=== PATIENT | female | born 1965 | race Two or more races ===

== ENCOUNTER 2018-11-09 16:13 | Inpatient (IN) | payer MEDICAID ==
[~2018-11-09] VITALS: Ht 162.6 cm; Wt 59.0 kg
[~2018-11-09 16:13] MED LIST: ETOMIDATE 2MG/ML 10ML VIAL IV ONE; SUCCINYLCHOLINE CHLORIDE 200MG/10ML IV ONE
[2018-11-09] MEDS ORDERED: SODIUM CHLORIDE 0.9% 1,000 ML IV ONE (16:21)
[2018-11-09] MEDS ORDERED: PROPOFOL 10MG/ML 100ML 100 ML IV PRN ×2 (16:30→23:45)
[2018-11-09 16:54] LABS: CHLORIDE 105 mEq/L (98-107)
[2018-11-09 16:56] LABS: BASOPHILS % 0.4 % (0.0-2.0); HEMATOCRIT. 40.4 % (36.0-48.0); HEMOGLOBIN. 13.2 g/dL (12.0-16.0); LYMPHOCYTES % 43.5 % (20.0-50.0); MEAN CORPUSCULAR HEMOGLOBIN 31.3 pg (28.0-32.0); MEAN PLATELET VOLUME 8.5 fl (7.4-10.4); MONOCYTES % 8.2 % (2.0-8.0); NEUTROPHILS % 45.9 % (40.0-76.0); PLATELET 265 x1000/uL (130-400); RED BLOOD CELL COUNT 4.21 mill/uL (4.2-5.4); RED CELL DISTRIBUTION WIDTH 13.4 % (11.6-14.6)
[2018-11-09 16:57] LABS: ETHANOL BLOOD 22 mg/dL
[2018-11-09 17:14] LABS: HCG SCREEN NEGATIVE
[2018-11-09] MEDS ORDERED: IOHEXOL-350 100 ML BOTTLE ONE (17:22)
[2018-11-09 17:40] LABS: BG BASE EXCESS -6.5 mmol/L (-2.0-2.0); BG CARBOXYHEMOGLOBIN 1.2 % (0.5-1.5); BG DEOXYHEMOGLOBIN 0.3 % (0.0-5.0); BG FRACTION INSPIRED OXYGEN 100; BG HCO3 ACT 20.8 mmol/L (22.0-26.0); BG METHEMOGLOBIN 0.3 % (0.0-1.5); BG OXYGEN SATURATION 99.7 % (92.0-98.5); BG OXYHEMOGLOBIN 98.2 % (94.0-97.0); BG PCO2 48.5 mmHg (35.0-45.0); BG PO2 > 602.7 mmHg (75.0-100.0); BG SAMPLE SITE RIGHT BRACHIAL; BG TIDAL VOLUME(mL) 400 mL; BG TOTAL HEMOGLOBIN 13.3 g/dL (12.0-18.0); BG VENT MODE VENT - A/C; BG VENT RATE 12 set
[2018-11-09 18:16] LABS: CLARITY URINE CLEAR (CLEAR); COLOR URINE YELLOW (YELLOW); KETONES URINE NEGATIVE (NEGATIVE); LEUKOCYTE ESTERASE URINE NEGATIVE (NEGATIVE); NITRITE URINE NEGATIVE (NEGATIVE); OCCULT BLOOD URINE TRACE (NEGATIVE); PH URINE 5.5 (4.5-8.0); PROTEIN URINE 1+ (NEGATIVE); SPECIFIC GRAVITY URINE 1.061 (1.005-1.030); UROBILINOGEN URINE 0.2 E.U./dL (0.2-1.0)
[2018-11-09 18:32] LABS: *AMPHETAMINES SCREEN URINE NEGATIVE (NEGATIVE); *BARBITURATES SCREEN URINE NEGATIVE (NEGATIVE)
[2018-11-09 18:33] LABS: CANNABINOID URINE SCREEN NEGATIVE (NEGATIVE); METHADONE URINE SCREEN NEGATIVE (NEGATIVE); OPIATES URINE SCREEN NEGATIVE (NEGATIVE); PHENCYCLIDINE URINE SCREEN NEGATIVE (NEGATIVE)
[2018-11-09 18:47] LABS: *BENZODIAZEPINES SCREEN URINE PRESUMTIVE POSITIVE (NEGATIVE); *COCAINE SCREEN URINE PRESUMTIVE POSITIVE (NEGATIVE)
[2018-11-09] MEDS ORDERED: NA PHOS,M-B/NA PHOS,DI-BA ENEMA 118ML PR PRN (21:45)
[2018-11-09] MEDS ORDERED: GUAIFENESIN 200MG/10ML SUGAR FREE UDC PO PRN (21:45)
[2018-11-09] MEDS ORDERED: MAGNESIUM/ALUMINUM HYDROXIDE/SIMETHICONE 30ML UDC PO PRN (21:45)
[2018-11-09] MEDS ORDERED: DIPHENHYDRAMINE 50MG/ML VIAL IV PRN (21:45)
[2018-11-09] MEDS ORDERED: LORAZEPAM 2MG/ML CPJ IV PRN (21:45)
[2018-11-09] MEDS ORDERED: HYDROCODONE/ACETAMINOPHEN 5/325MG TABLET PO PRN (21:45)
[2018-11-09] MEDS ORDERED: DOCUSATE SODIUM 100MG CAPSULE PO PRN (21:45)
[2018-11-09] MEDS ORDERED: ONDANSETRON HCL 4MG/2ML INJ IV PRN (21:45)
[2018-11-09] MEDS ORDERED: HYDROMORPHONE HCL/PF 2MG/ML CPJ IV PRN (21:45)
[2018-11-09] MEDS ORDERED: IPRATROPIUM/ALBUTEROL 0.5-3(2.5)MG/3ML NEB INH PRN (21:45)
[2018-11-09] MEDS: DEXT 5%/0.45% NACL KCL 10MEQ/L 1,000 ML IV SCH (23:49)
[2018-11-10] VITALS (105 sets, daily range): BP systolic 79–138; BP diastolic 39–85
[2018-11-10 00:19] LABS: CHLORIDE 110 mEq/L (98-107)
[2018-11-10 03:06] LABS: BG BASE EXCESS 0.5 mmol/L (-2.0-2.0); BG CARBOXYHEMOGLOBIN 0.6 % (0.5-1.5); BG DEOXYHEMOGLOBIN 6.8 % (0.0-5.0); BG FRACTION INSPIRED OXYGEN 40; BG HCO3 ACT 24.5 mmol/L (22.0-26.0); BG METHEMOGLOBIN 0.3 % (0.0-1.5); BG OXYGEN SATURATION 93.1 % (92.0-98.5); BG OXYHEMOGLOBIN 92.3 % (94.0-97.0); BG PCO2 37.4 mmHg (35.0-45.0); BG PH 7.435 (7.350-7.450); BG PO2 61.4 mmHg (75.0-100.0); BG SAMPLE SITE RIGHT RADIAL; BG TIDAL VOLUME(mL) 450 mL; BG TOTAL HEMOGLOBIN 12.6 g/dL (12.0-18.0); BG VENT MODE VENT - A/C; BG VENT RATE 20 set
[2018-11-10] MEDS ORDERED: NOREPINEPHRINE 8 MG in DEXT 5% WATER 242 ML IV PRN (03:26)
[2018-11-10] MEDS ORDERED: SODIUM CHLORIDE 0.9% 250 ML IV ONE ×2 (06:30→13:15)
[2018-11-10] MEDS: DEXT 5%/0.45% NACL KCL 10MEQ/L 1,000 ML IV SCH ×2 (08:42→17:09)
[2018-11-10 09:05] LABS: CHLORIDE 112 mEq/L (98-107); HDL CHOLESTEROL 69 mg/dL (40-59); LDL CHOLESTEROL 61 mg/dL (5-100); T4 FREE 0.79 ng/dL (0.76-1.46)
[2018-11-10] MEDS: ASPIRIN 81MG EC TABLET PO SCH (10:00)
[2018-11-10] MEDS: ENOXAPARIN 40MG/0.4ML SYR SUBCUT SCH (10:01)
[2018-11-10 10:11] LABS: BASOPHILS % 0.3 % (0.0-2.0); EOSINOPHILS % 1.4 % (0.0-5.0); HEMOGLOBIN. 11.9 g/dL (12.0-16.0); LYMPHOCYTES % 30.1 % (20.0-50.0); MEAN CORPUSCULAR HEMOGLOBIN 31.4 pg (28.0-32.0); MEAN CORPUSCULAR VOLUME 93.9 fL (81.0-99.0); MEAN PLATELET VOLUME 8.9 fl (7.4-10.4); MONOCYTES % 8.7 % (2.0-8.0); NEUTROPHILS % 59.5 % (40.0-76.0); PLATELET 193 x1000/uL (130-400); RED CELL DISTRIBUTION WIDTH 13.4 % (11.6-14.6)
[2018-11-10 10:16] LABS: HEMATOCRIT. 35.7 % (36.0-48.0)
[2018-11-10] MEDS: PANTOPRAZOLE SODIUM 40 MG/VIAL IV SCH (14:10)
[2018-11-10] MEDS: ACETAMINOPHEN 325MG TABLET PO PRN (16:52)
[2018-11-10] MEDS ORDERED: PROPOFOL 10MG/ML 100ML 100 ML IV PRN (19:15)
[2018-11-11] VITALS (94 sets, daily range): BP systolic 97–162; BP diastolic 61–98
[2018-11-11] MEDS: ACETAMINOPHEN 325MG TABLET PO PRN (00:28)
[2018-11-11] MEDS: DEXT 5%/0.45% NACL KCL 10MEQ/L 1,000 ML IV SCH ×4 (01:01→19:20)
[2018-11-11] MEDS: ASPIRIN 81MG EC TABLET PO SCH (09:05)
[2018-11-11] MEDS: PANTOPRAZOLE SODIUM 40 MG/VIAL IV SCH (09:06)
[2018-11-11] MEDS: ENOXAPARIN 40MG/0.4ML SYR SUBCUT SCH (09:06)
[2018-11-11] MEDS: LEVOFLOXACIN 500MG PREMIX 100 ML IV SCH (13:35)
[2018-11-11 13:40] LABS: BG BASE EXCESS -3.1 mmol/L (-2.0-2.0); BG CARBOXYHEMOGLOBIN 0.2 % (0.5-1.5); BG DEOXYHEMOGLOBIN 0.7 % (0.0-5.0); BG FRACTION INSPIRED OXYGEN 50; BG METHEMOGLOBIN 0.4 % (0.0-1.5); BG OXYGEN SATURATION 99.3 % (92.0-98.5); BG OXYHEMOGLOBIN 98.7 % (94.0-97.0); BG PCO2 39.4 mmHg (35.0-45.0); BG PH 7.364 (7.350-7.450); BG PO2 251.4 mmHg (75.0-100.0); BG PRESSURE SUPPORT 12; BG SAMPLE SITE RIGHT RADIAL; BG TIDAL VOLUME(mL) 450 mL; BG TOTAL HEMOGLOBIN 12.2 g/dL (12.0-18.0); BG VENT MODE VENT - SIMV; BG VENT RATE 12 set
[2018-11-11 17:08] LABS: BG BASE EXCESS -4.4 mmol/L (-2.0-2.0); BG CARBOXYHEMOGLOBIN 0.3 % (0.5-1.5); BG FRACTION INSPIRED OXYGEN 40; BG HCO3 ACT 21.8 mmol/L (22.0-26.0); BG METHEMOGLOBIN 0.1 % (0.0-1.5); BG OXYHEMOGLOBIN 97.6 % (94.0-97.0); BG PCO2 44.5 mmHg (35.0-45.0); BG PH 7.308 (7.350-7.450); BG PO2 116.1 mmHg (75.0-100.0); BG PRESSURE SUPPORT 10; BG SAMPLE SITE RIGHT RADIAL; BG TIDAL VOLUME(mL) 450 mL; BG TOTAL HEMOGLOBIN 12.5 g/dL (12.0-18.0); BG VENT MODE VENT - SIMV; BG VENT RATE 6 set
[2018-11-11] MEDS ORDERED: PROPOFOL 10MG/ML 100ML 100 ML IV PRN (19:45)
[2018-11-12] VITALS (61 sets, daily range): BP systolic 108–165; BP diastolic 58–142
[2018-11-12] MEDS: DEXT 5%/0.45% NACL KCL 10MEQ/L 1,000 ML IV SCH ×4 (03:14→22:15)
[2018-11-12 05:28] LABS: BASOPHILS % 0.3 % (0.0-2.0); EOSINOPHILS % 0.7 % (0.0-5.0); HEMATOCRIT. 36.1 % (36.0-48.0); LYMPHOCYTES % 14.5 % (20.0-50.0); MEAN CORPUSCULAR HEMOGLOBIN 31.1 pg (28.0-32.0); MEAN CORPUSCULAR VOLUME 93.9 fL (81.0-99.0); MEAN PLATELET VOLUME 9.5 fl (7.4-10.4); MONOCYTES % 8.3 % (2.0-8.0); NEUTROPHILS % 76.2 % (40.0-76.0); PLATELET 178 x1000/uL (130-400); RED BLOOD CELL COUNT 3.85 mill/uL (4.2-5.4)
[2018-11-12 05:39] LABS: CHLORIDE 106 mEq/L (98-107)
[2018-11-12] MEDS ORDERED: LIDOCAINE HCL 1% 20ML VIAL (Pyxis) INJ ONE (07:52)
[2018-11-12] MEDS: PANTOPRAZOLE SODIUM 40 MG/VIAL IV SCH (09:18)
[2018-11-12] MEDS: ASPIRIN 81MG EC TABLET PO SCH (09:18)
[2018-11-12] MEDS: ENOXAPARIN 40MG/0.4ML SYR SUBCUT SCH (09:18)
[2018-11-12 11:18] LABS: BG BASE EXCESS -1.9 mmol/L (-2.0-2.0); BG CARBOXYHEMOGLOBIN 0.3 % (0.5-1.5); BG DEOXYHEMOGLOBIN 1.4 % (0.0-5.0); BG FRACTION INSPIRED OXYGEN 40; BG HCO3 ACT 23.4 mmol/L (22.0-26.0); BG METHEMOGLOBIN 0.4 % (0.0-1.5); BG OXYGEN SATURATION 98.6 % (92.0-98.5); BG OXYHEMOGLOBIN 97.9 % (94.0-97.0); BG PCO2 42.1 mmHg (35.0-45.0); BG PH 7.363 (7.350-7.450); BG PO2 132.9 mmHg (75.0-100.0); BG PRESSURE SUPPORT 8; BG SAMPLE SITE RIGHT RADIAL; BG VENT MODE VENT - CPAP
[2018-11-12] MEDS: IPRATROPIUM/ALBUTEROL 0.5-3(2.5)MG/3ML NEB HHN SCH ×3 (12:00→20:43)
[2018-11-12] MEDS: LEVOFLOXACIN 500MG PREMIX 100 ML IV SCH (12:02)
[2018-11-12] MEDS: CEFEPIME 1,000 MG in DEXTROSE 5% WATER 50 ML IV SCH (13:09)
[2018-11-12] MEDS: METRONIDAZOLE 500 MG PREMIX 100 ML IV SCH ×2 (13:09→22:14)
[2018-11-12] MEDS: ACETYLCYSTEINE 100MG/ML 10% VIAL 4ML INH SCH (15:04)
[2018-11-12] MEDS: CLONIDINE 0.1MG TABLET PO PRN (17:43)
[2018-11-13] VITALS (38 sets, daily range): BP systolic 96–176; BP diastolic 20–92
[2018-11-13] MEDS: IPRATROPIUM/ALBUTEROL 0.5-3(2.5)MG/3ML NEB HHN SCH ×7 (00:35→23:55)
[2018-11-13] MEDS: ACETYLCYSTEINE 100MG/ML 10% VIAL 4ML INH SCH ×4 (00:35→23:55)
[2018-11-13] MEDS: CEFEPIME 1,000 MG in DEXTROSE 5% WATER 50 ML IV SCH (01:59)
[2018-11-13] MEDS: METRONIDAZOLE 500 MG PREMIX 100 ML IV SCH (05:03)
[2018-11-13] MEDS: DEXT 5%/0.45% NACL KCL 10MEQ/L 1,000 ML IV SCH ×2 (05:38→16:23)
[2018-11-13 05:41] LABS: CHLORIDE 107 mEq/L (98-107)
[2018-11-13 05:43] LABS: BASOPHILS % 0.3 % (0.0-2.0); EOSINOPHILS % 1.7 % (0.0-5.0); HEMATOCRIT. 32.7 % (36.0-48.0); HEMOGLOBIN. 10.8 g/dL (12.0-16.0); LYMPHOCYTES % 11.8 % (20.0-50.0); MEAN CORPUSCULAR HEMOGLOBIN 31.2 pg (28.0-32.0); MEAN CORPUSCULAR VOLUME 94.1 fL (81.0-99.0); MONOCYTES % 8.4 % (2.0-8.0); NEUTROPHILS % 77.8 % (40.0-76.0); PLATELET 159 x1000/uL (130-400); RED BLOOD CELL COUNT 3.47 mill/uL (4.2-5.4); RED CELL DISTRIBUTION WIDTH 12.9 % (11.6-14.6)
[2018-11-13] MEDS: ASPIRIN 81MG EC TABLET PO SCH (09:12)
[2018-11-13] MEDS: PANTOPRAZOLE SODIUM 40 MG/VIAL IV SCH (09:12)
[2018-11-13] MEDS: ENOXAPARIN 40MG/0.4ML SYR SUBCUT SCH (09:13)
[2018-11-13] MEDS ORDERED: POTASSIUM CHLORIDE 20MEQ TABLET SR PO NR (11:00)
[2018-11-13] MEDS: LEVOFLOXACIN 500MG PREMIX 100 ML IV SCH (12:36)
[2018-11-13] MEDS ORDERED: LEVOFLOXACIN 500MG PREMIX 100 ML IV SCH (13:00)
[2018-11-13] MEDS: CLONIDINE 0.1MG TABLET PO PRN (17:16)
[2018-11-13] MEDS: ACETAMINOPHEN 325MG TABLET PO PRN (20:46)
[2018-11-14] VITALS: BP 146/85
[2018-11-14] MEDS: DEXT 5%/0.45% NACL KCL 10MEQ/L 1,000 ML IV SCH ×3 (02:45→21:14)
[2018-11-14 04:00] VITALS: BP 165/95
[2018-11-14] MEDS: CLONIDINE 0.1MG TABLET PO PRN (04:27)
[2018-11-14] MEDS: IPRATROPIUM/ALBUTEROL 0.5-3(2.5)MG/3ML NEB HHN SCH ×6 (04:46→23:59)
[2018-11-14 07:10] LABS: BASOPHILS % 0.2 % (0.0-2.0); EOSINOPHILS % 3.1 % (0.0-5.0); HEMATOCRIT. 33.7 % (36.0-48.0); HEMOGLOBIN. 11.3 g/dL (12.0-16.0); MEAN CORPUSCULAR VOLUME 92.6 fL (81.0-99.0); MONOCYTES % 9.9 % (2.0-8.0); NEUTROPHILS % 77.8 % (40.0-76.0); PLATELET 214 x1000/uL (130-400); RED BLOOD CELL COUNT 3.64 mill/uL (4.2-5.4); RED CELL DISTRIBUTION WIDTH 12.6 % (11.6-14.6)
[2018-11-14 07:46] LABS: CHLORIDE 106 mEq/L (98-107)
[2018-11-14] MEDS: ACETYLCYSTEINE 100MG/ML 10% VIAL 4ML INH SCH ×2 (07:46→16:02)
[2018-11-14 08:00] VITALS: BP 154/86
[2018-11-14] MEDS ORDERED: POTASSIUM CHLORIDE 20MEQ TABLET SR PO SCH (10:00)
[2018-11-14] MEDS: PANTOPRAZOLE SODIUM 40 MG/VIAL IV SCH (10:07)
[2018-11-14] MEDS: ASPIRIN 81MG EC TABLET PO SCH (10:07)
[2018-11-14] MEDS: ENOXAPARIN 40MG/0.4ML SYR SUBCUT SCH (10:08)
[2018-11-14 12:00] VITALS: BP 143/82
[2018-11-14] MEDS: LEVOFLOXACIN 500MG PREMIX 100 ML IV SCH (13:39)
[2018-11-14 16:00] VITALS: BP 150/89
[2018-11-14 20:00] VITALS: BP 162/92
[2018-11-14] MEDS: GUAIFENESIN 600MG ER TABLET PO SCH (21:13)
[2018-11-15] VITALS: BP 148/70
[2018-11-15] MEDS: IPRATROPIUM/ALBUTEROL 0.5-3(2.5)MG/3ML NEB HHN SCH ×4 (03:59→15:31)
[2018-11-15 04:00] VITALS: BP 132/58
[2018-11-15 08:00] VITALS: BP 154/97
[2018-11-15] MEDS: DEXT 5%/0.45% NACL KCL 10MEQ/L 1,000 ML IV SCH ×2 (10:36→10:38)
[2018-11-15] MEDS: ASPIRIN 81MG EC TABLET PO SCH (10:36)
[2018-11-15] MEDS: PANTOPRAZOLE SODIUM 40 MG/VIAL IV SCH (10:36)
[2018-11-15] MEDS: ENOXAPARIN 40MG/0.4ML SYR SUBCUT SCH (10:37)
[2018-11-15 12:00] VITALS: BP 145/83
[2018-11-15] MEDS: GUAIFENESIN 600MG ER TABLET PO SCH (13:54)
[2018-11-15] MEDS: LEVOFLOXACIN 500MG PREMIX 100 ML IV SCH (14:56)
[2018-11-15 16:00] VITALS: BP 154/89
[2018-11-15 17:27] VITALS: BP 154/82
== END 2018-11-15 18:00 | disposition home health service (06) | DRG 720 ==
LOC: ER 16:13 → EDBEDREQ 16:55 → MICUSO 20:26 → EDBD 20:26 → EDBEDREQ 20:30 → EDBEDREQTM 20:30 → ENRESERV 21:33 → 5WST 11-13 18:44
PROVIDERS: ADMIT Internal Medicine; ATTEND Internal Medicine
PROC: 5A1945Z Respiratory Ventilation, 24-96 Consecutive Hours (ICD-10-PCS; principal; 2018-11-09)
PROC: 0BH18EZ Insertion of Endotracheal Airway into Trachea, Via Natural or Artificial Opening Endoscopic (ICD-10-PCS; 2018-11-09)
PROC: 02H633Z Insertion of Infusion Device into Right Atrium, Percutaneous Approach (ICD-10-PCS; 2018-11-12)
PROC: B244ZZZ Ultrasonography of Right Heart (ICD-10-PCS; 2018-11-12)
DX: A41.9 Sepsis, unspecified organism (principal); J96.00 Acute respiratory failure, unspecified whether with hypoxia or hypercapnia; J69.0 Pneumonitis due to inhalation of food and vomit; R57.9 Shock, unspecified; G92 Toxic encephalopathy; J15.0 Pneumonia due to Klebsiella pneumoniae; E87.5 Hyperkalemia; T42.4X1A Poisoning by benzodiazepines, accidental (unintentional), initial encounter; T40.5X1A Poisoning by cocaine, accidental (unintentional), initial encounter; I10 Essential (primary) hypertension; F14.10 Cocaine abuse, uncomplicated; F13.10 Sedative, hypnotic or anxiolytic abuse, uncomplicated; Z78.1 Physical restraint status; Y92.89 Other specified places as the place of occurrence of the external cause
CPT/HCPCS: 31500; 36415; 36569; 36600; 70496; 70498; 71045; 76937; 80048; 80061; 80305; 82375; 82533; 82805; 84439; 84443; 84478; 84484; 84703; 87070; 87077; 87186; 92610; 93971; 94002; 94003; 94640; 96360; 97116; 97162; 97166; 97530; 97535; 99291; C1725; C9113; G0482; J0330; J0692; J1650; J1956; J2704; J3490; J7030; J7050; J7060; J7608; J7620; Q9967; A4315

== ENCOUNTER 2022-03-25 17:29 | Emergency (ER) | payer MEDICAID ==
[~2022-03-25] VITALS: Ht 162.6 cm; Wt 51.0 kg
[2022-03-25 17:30] VITALS: BP 126/82
[2022-03-25] MEDS ORDERED: ASPIRIN 81MG TABLET PO ONE (22:45)
[2022-03-25 23:23] LABS: BASOPHILS % 0.6 % (0.0-2.0); HEMATOCRIT. 43.9 % (36.0-48.0); HEMOGLOBIN. 14.7 g/dL (12.0-16.0); MEAN CORPUSCULAR HEMOGLOBIN 31.4 pg (28.0-32.0)
[2022-03-25 23:25] LABS: EOSINOPHILS % 1.5 % (0.0-5.0); LYMPHOCYTES % 43.6 % (20.0-50.0); MEAN PLATELET VOLUME 7.9 fl (7.4-10.4); MONOCYTES % 7.2 % (2.0-8.0); NEUTROPHILS % 47.1 % (40.0-76.0); PLATELET 310 x1000/uL (130-400); RED BLOOD CELL COUNT 4.68 mill/uL (4.2-5.4); RED CELL DISTRIBUTION WIDTH 13.4 % (11.6-14.6)
[2022-03-25 23:48] LABS: CHLORIDE 103 mEq/L (98-107)
== END 2022-03-26 02:18 | disposition home or self-care (01) ==
LOC: ER 17:29
DX: F14.10 Cocaine abuse, uncomplicated (principal); R07.89 Other chest pain; I10 Essential (primary) hypertension; E78.00 Pure hypercholesterolemia, unspecified
CPT/HCPCS: 36415; 71045; 80053; 83880; 84484; 85025; 99284